=== PATIENT | female | born 1975 | race Hispanic/Latino ===

== ENCOUNTER 2016-10-25 21:59 | Emergency (ER) | payer SELFPAY ==
[2016-10-25 22:40] VITALS: BP 137/89
[2016-10-25 23:11] LABS: Basophils % (Auto) 0.4 % (0.0-1.8); Eosinophils % (Auto) 2.1 % (0.0-4.3); Hematocrit 38.7 % (30.3-42.9); Hemoglobin 12.9 gm/dl (10.1-14.3); Mean Corpuscular HGB Conc 33 % (30-34); Mean Corpuscular Hemoglobin 31 pg (28-32); Mean Corpuscular Volume 92 fl (79-97); Platelet Count 320 K/mm3 (140-440); Red Cell Distribution Width 13.4 % (13.2-15.2); White Blood Count 6.7 K/mm3 (4.5-11.0)
[2016-10-25 23:26] LABS: Anion Gap 18 mmol/L; Blood Urea Nitrogen 9 mg/dL (7-17); Carbon Dioxide 24 mmol/L (22-30); Chloride 101.8 mmol/L (98-107); Glucose 83 mg/dL (65-100); Sodium 140 mmol/L (137-145)
[2016-10-25 23:34] LABS: Bilirubin,Urine NEG (Negative); Blood,Urine NEG (Negative); Ketones,Urine NEG (Negative); Leukocyte Esterase,Urine NEG (Negative); Nitrite,Urine NEG (Negative); Protein,Urine <15 mg/dL mg/dL (Negative); Urobilinogen,Urine < 2.0 mg/dL (<2.0); WBC,Urine < 1.0 /HPF (0.0-6.0)
[2016-10-25 23:38] LABS: RBC,Urine < 1.0 /HPF (0.0-6.0)
--- NOTE | 2016-10-27 09:35 | ED Elopement Review ---
ED Pt Elopement review - Results review Lab results: Laboratory Tests 10/25/16 10/25/16 10/25/16 22:50 22:50 23:15 WBC 6.7 RBC 4.20 Hgb 12.9 Hct 38.7 MCV 92 MCH 31 MCHC 33 RDW 13.4 Plt Count 320 Lymph % (Auto) 40.1 H [place] % (Auto) 7.7 H Eos % (Auto) 2.1 Baso % (Auto) 0.4 Lymph # 2.7 [place] # 0.5 Eos # 0.1 Baso # 0.0 Seg Neutrophils % 49.7 Seg Neutrophils # 3.4 Sodium 140 Potassium 4.0 Chloride 101.8 Carbon Dioxide 24 Anion Gap 18 BUN 9 Creatinine 0.5 L Estimated GFR > 60 BUN/Creatinine Ratio 18.00 Glucose 83 Calcium 9.0 Urine Color Yellow Urine Turbidity Clear Urine pH 7.0 Ur Specific [place] 1.016 Urine Protein <15 mg/dl Urine Glucose (UA) Neg Urine Ketones Neg Urine Blood Neg Urine Nitrite Neg Urine Bilirubin Neg Urine Urobilinogen < 2.0 Ur Leukocyte Esterase Neg Urine WBC (Auto) < 1.0 Urine RBC (Auto) < 1.0 U Epithel Cells (Auto) < 1.0 Urine HCG, Qual Negative - Call Back decision Pt Call Back Decision: No action required
== END 2016-10-26 03:30 ==
LOC: ED 21:59
DX: R20.0 Anesthesia of skin (principal); R51 Headache; Z72.0 Tobacco use; Z53.21 Procedure and treatment not carried out due to patient leaving prior to being seen by health care provider
CPT/HCPCS: 36415; 80048; 81001; 81025; 85025